=== PATIENT | female | born 1965 | race Caucasian/White ===

== ENCOUNTER → 2022-10-19 08:33 | Outpatient (CLI) | payer OTHER, MEDICAID, SELFPAY ==
--- NOTE | 2022-10-19 08:36 | DI.MRI.S_ITS ---
PROCEDURE: MR CERVICAL SPINE WO CON INDICATIONS: Spinal stenosis, cervical region TECHNIQUE: Noncontrast sagittal T1 spin echo and T2 fast spin echo, sagittal STIR, foraminal oblique sagittal T2 fast spin echo, and axial gradient echo or T2 fast spin echo through the cervical spine. COMPARISON: None. FINDINGS: Postsurgical changes of C5-C6 ACDF with mature osseous fusion across the intervertebral disc space. Approximately 3 millimeter anterolisthesis of C2 on C3 and C3 on C4. Approximately 2 millimeter retrolisthesis of C4 on C5. Otherwise normal alignment. Vertebral body heights maintained. No suspicious focal marrow signal abnormality or bone marrow edema. Prevertebral and paraspinous soft tissues are normal. C2-C3: No spinal canal stenosis. Mild neural foraminal narrowing on the left due to facet and uncovertebral hypertrophy. C3-C4: Posterior disc osteophyte complex flattens the ventral thecal sac without mass effect upon the cord. Moderate left and mild right neural foraminal narrowing due to facet and uncovertebral hypertrophy. C4-C5: Posterior disc-osteophyte complex flattens the ventral cord slightly. Facet and uncovertebral hypertrophy combine to produce severe bilateral neural foraminal stenosis. C5-C6: No spinal canal stenosis. Mild bilateral neural foraminal narrowing due to facet and uncovertebral hypertrophy. C6-C7: No spinal canal stenosis. Mild bilateral neural foraminal narrowing due to facet and uncovertebral spurring. C7-T1: No spinal canal or neural foraminal stenosis. 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 Dictated by: Balwinder Gorman M.D. on 10/19/2022 at 13:17 Approved by: Balwinder Gorman M.D. on 10/19/2022 at 13:46
== END ==
PROVIDERS: Referring Provider Physical Medicine & Rehabilitation; Visit Provider Physical Medicine & Rehabilitation
DX: M48.02 Spinal stenosis, cervical region (principal); M47.812 Spondylosis without myelopathy or radiculopathy, cervical region
CPT/HCPCS: 72141